=== PATIENT | female | born 1945 | race Caucasian/White ===

== ENCOUNTER → 2017-08-03 | Outpatient (CLI) | payer OTHER ==
[~2017-08-03] MED LIST: ALBUTEROL; ALBUTEROL2.5 MG/31 INH; AMARYL2 MG PO; AMLODIPINE BESYL5 M1 PO; ASPIRIN EC325 M1 PO; ASPRIMOX 325 M325 MG PO; AUGMENTIN 875875 M1 PO; AVELOX 400 MG400 M1 PO; CARVEDILOL25 MG PO; CLONIDINE0.1; COREG CR40 MG PO; DULERA 200 MCG/13 GM IH; GLUCOPHAGE1000 MG PO; GLYBURIDE 5 MG T5 M1 PO; HYDROCHLOROTH12.5 M1 PO; HYDROCHLOROTH12.5 MG PO; IMDUR 60 MG TAB60 M1 PO; LEVAQUIN 500 M500 M2 PO; LEVOTHYROXINE0.05 MG PO; LIPITOR 40 MG T40 M1 PO; LISINOPRIL-HCT1 EAC1 PO; MAGOX 400400 MG PO; METFORMIN HCL500 MG PO; NEXIUM40 MG PO; NORVASC 5 MG TAB5 MG PO; POTASSIUM GLUC500 GM PO; PREDNISONE 10 M10 M1 PO; PRILOSEC 20 MG20 MG PO; VENTOLIN HFA 1818 GM INH; VITAMIN D3 1,01 EACH PO; ZESTRIL40 MG PO; ZINC30 MG PO; ZPAK PO
== END ==
LOC: M.RAD 10:55
DX: J44.9 Chronic obstructive pulmonary disease, unspecified (principal); J98.11 Atelectasis; Z95.0 Presence of cardiac pacemaker

== ENCOUNTER 2017-11-20 23:17 | Inpatient (IN) | payer OTHER ==
[~2017-11-20] VITALS: Ht 167.6 cm; Wt 78.5 kg
[~2017-11-20 23:17] MED LIST changes: -ALBUTEROL2.5 MG/31 INH; -AMLODIPINE BESYL5 M1 PO; -CLONIDINE0.1
[2017-11-20 23:30] VITALS: BP 183/86
[2017-11-20 23:38] LABS: ABSOLUTE BASOPHILS 0.1 thou/uL (0.0-0.2); ABSOLUTE EOSINOPHILS 0.7 thou/uL (0.0-0.7); ABSOLUTE MONOCYTES 0.8 thou/uL (0.0-1.2); ABSOLUTE NEUTROPHILS 4.8 thou/uL (1.6-8.1); BASOPHILS 0.6 %; HEMATOCRIT 34.2 % (37.0-47.0); HEMOGLOBIN 11.5 gm/dL (12.0-15.0); LYMPHOCYTES 32.5 %; MCH 29.1 pg (26.0-34.0); MCHC 33.7 g/dL (28.0-37.0); MCV 86.5 fL (80.0-100.0); MONOCYTES 8.8 %; MPV 7.4 fl. (7.2-11.1); NUCLEATED RBCS 0 /100WBC; PLATELET COUNT* 341 thou/uL (150-400); POLYS 51.1 %; RBC 3.95 mil/uL (4.20-5.00); RDW-CV 14.6 % (10.5-14.5); WBC 9.3 thou/uL (4.0-11.0)
[2017-11-20 23:55] LABS: CALCIUM 9.4 mg/dL (8.5-10.1); CREATININE 1.6 mg/dL (0.6-1.3); POTASSIUM 3.9 mmol/L (3.5-5.1)
[2017-11-20 23:59] LABS: INR 1.1; PROTIME 10.5 Seconds (9.20-11.50)
[2017-11-21 00:08] LABS: ALBUMIN 3.8 g/dL (3.4-5.0); TOTAL BILIRUBIN 0.4 mg/dL (<0.1-1.0); TOTAL PROTEIN 7.5 g/dL (6.4-8.2); TROPONIN-I LEVEL 0.09 ng/mL (<0.06)
[2017-11-21] MEDS ORDERED: CLONIDINE0.1 (00:15)
[2017-11-21 01:58] LABS: URINE BILIRUBIN NEGATIVE (Negative); URINE BLOOD NEGATIVE (Negative); URINE CLARITY CLEAR; URINE COLOR STRAW; URINE GLUCOSE-RANDOM NEGATIVE (Negative); URINE KETONES NEGATIVE (Negative); URINE LEUKOCYTES-REFLEX NEGATIVE (Negative); URINE NITRITE-REFLEX NEGATIVE (Negative); URINE PROTEIN NEGATIVE (Negative); URINE SPECIFIC GRAVITY <= 1.005 (1.005-1.030); URINE UROBILINOGEN 0.2 E.U./dl (0.2-1.0)
[2017-11-21 02:52] VITALS: BP 150/57
[2017-11-21 03:10] VITALS: BP 125/49
[2017-11-21] MEDS ORDERED: ALBUTEROL2.5 MG/31 INH (03:21)
--- NOTE | 2017-11-21 06:58 | NUR ---
PT WAS ADMITTED TO ROOM 200 DURING THIS SHIFT; VSS, A+OX4, DENIES PAIN. SHE IS ABLE TO COMMUNICATE HER NEEDS TO STAFF EFFECTIVELY. SHE HAS DENIED THE NEED FOR PAIN MEDICATION UP TO THIS TIME. NPO SINCE ARRIVAL FOR A CARDIOLOGY CONSULT LATER TODAY. ECHO ORDERED. HOME MEDICATIONS REVIEWED WITH PATIENT AT TIME OF ADMISSION.
[2017-11-21 07:59] LABS: HEMATOCRIT 32.3 % (37.0-47.0); HEMOGLOBIN 10.9 gm/dL (12.0-15.0); MCH 29.1 pg (26.0-34.0); MCHC 33.8 g/dL (28.0-37.0); MCV 86.1 fL (80.0-100.0); MPV 7.9 fl. (7.2-11.1); RBC 3.75 mil/uL (4.20-5.00); RDW-CV 14.6 % (10.5-14.5); WBC 9.3 thou/uL (4.0-11.0)
[2017-11-21 08:00] VITALS: BP 157/59
[2017-11-21 08:14] LABS: ALBUMIN 3.6 g/dL (3.4-5.0); CALCIUM 9.1 mg/dL (8.5-10.1); CREATININE 1.3 mg/dL (0.6-1.3); POTASSIUM 3.9 mmol/L (3.5-5.1); TOTAL BILIRUBIN 0.4 mg/dL (<0.1-1.0)
[2017-11-21 12:20] VITALS: BP 141/68
--- NOTE | 2017-11-21 16:57 | EKG ---
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 Tomlinson : 1945 Requested By: Tanya Suresh Order Number: [id number] MD: Bobby Acharya Measurements Intervals [place] Rate: 68 P: 15 DE: 53 QRS: 125 QRSD: 128 T: -63 QT: 386 QTc: 411 Interpretive Statements A-V dual-paced rhythm with some inhibition No further analysis attempted due to paced rhythm Compared to ECG 07/07/2016 10:33:18 Atrial-sensed ventricular-paced complex(es) or rhythm no longer present Electronically Signed On 11-21-2017 16:56:49 CDT by Bobby Acharya [email or web address] <ELECTRONICALLY SIGNED> By: Bobby Acharya MD, FACC 11/21/17 1656 2344 2344 Bobby Acharya MD, FAC /EPI
[2017-11-21 16:58] VITALS: BP 153/68
--- NOTE | 2017-11-21 18:56 | NUR ---
I ASSUMED CARE OF THE PATIENT AT 0700. SHE IS ALERT AND ORIENTED X4 AND IS UP AD MANUEL SAFELY. HOURLY ROUNDING WAS COMPLETED AND PATIENT NEEDS ARE MET. BED IS IN THE LOW LOCKED POSITION AND CALL LIGHT IS IN REACH. RENAL DOPPLER WAS COMPLETED AND ECHO IS SCHEDULED FOR WEDNESDAY. CONTINUOUS FLUIDS ARE GOING. SHE IS V PACED ON THE MONITOR. BLOOD SUGARS ARE MANAGED WITH ORAL COVERAGE. PATIENT IS PROGRESSING TOWARDS GOALS. PAIN IS DENIED. WILL CONTINUE TO MONITOR.
[2017-11-21 19:35] VITALS: BP 155/72
[2017-11-22] VITALS: BP 153/79
[2017-11-22 04:00] VITALS: BP 131/54
--- NOTE | 2017-11-22 04:09 | NUR ---
END SHIFT: PT RESTED WELL. NO COMPLAINTS. NO PAIN. V PACED WITH PVC'S. REMAINS ON RA. AWAITING DC TODAY. ASSESSMENT UNCHANGED. VSS. SAFETY PRECAUTIONS IN PLACE. CALL LIGHT IN REACH. PERFORMED HOURLY ROUNDING. WILL CONT TO MONITOR.
[2017-11-22 05:12] LABS: HEMATOCRIT 31.1 % (37.0-47.0); HEMOGLOBIN 10.4 gm/dL (12.0-15.0); MCH 28.8 pg (26.0-34.0); MCHC 33.6 g/dL (28.0-37.0); MCV 85.9 fL (80.0-100.0); MPV 7.9 fl. (7.2-11.1); RBC 3.62 mil/uL (4.20-5.00); RDW-CV 14.8 % (10.5-14.5); WBC 7.6 thou/uL (4.0-11.0)
[2017-11-22 05:45] LABS: CALCIUM 9.1 mg/dL (8.5-10.1); CREATININE 1.3 mg/dL (0.6-1.3); POTASSIUM 4.1 mmol/L (3.5-5.1)
--- NOTE | 2017-11-22 07:15 | NUR ---
ASSUMED CARE OF PT ASSESSED AND DOCUMENTED. PT IS ON CARDIAC MONITER TRACING V-PACED HR 73. PT IS A&O WITH NO C/O PAIN. PT IS AFEBRILE. PT IS ON ROOM AIR. BED IS IN LOW POSITION CALL LIGHT IS IN REACH. WM.
[2017-11-22 08:00] VITALS: BP 189/78
--- NOTE | 2017-11-22 09:24 | CON ---
[facility] [address] [place] [address] CONSULTATION Name: KIERSTEN ROMERO Room: [address] IN ..#: [id number] Admission: 11/21/17 Attend Phys: Daniel Burnett, Discharge: Date of : 45 Report #: [id number] THIS REPORT FOR: //name// CC: Liborio Looney DO Daniel Burnett TYPE OF REPORT: Cardiology consultation. INDICATION: Elevated troponin. HISTORY OF PRESENT ILLNESS: The patient is a very pleasant 71-year-old white female who was admitted to the hospital with hypertensive urgency. In this setting, she was noted to have a creatinine of 1.6 and troponins of 0.08, 0.09 and 0.08. She denies chest pain. She has a history of nonischemic cardiomyopathy with normalization of her left ventricular systolic function on most recent echocardiogram. 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 From a cardiac standpoint, she is doing well. Cardiac risk factors include hypertension, hyperlipidemia and type 2 diabetes mellitus. She denies any chest pain, tightness or pressure. She is not having palpitations. She was having headaches and in that setting was checking her blood pressure and noting it to be rather elevated. She has no visual changes. She is without other cardiac complaint. PAST MEDICAL HISTORY: 1. Nonischemic cardiomyopathy. 2. Status post biventricular ICD placement. 3. Hypertension. 4. Cardiac catheterization that shows mild nonocclusive coronary artery disease. 5. Hyperlipidemia. SOCIAL HISTORY: She does not smoke. She does not drink alcohol. FAMILY HISTORY: Noncontributory. PHYSICAL EXAMINATION: VITAL SIGNS: Presently stable. Blood pressure 150/77 and pulse 69 and regular. GENERAL: This is a pleasant lady, in no distress. Mood and affect appropriate. HEENT: Extraocular muscles intact. Mucous membranes moist. NECK: Shows no jugular venous distention. There are no carotid bruits. CHEST: Chest reveals clear lung owens without wheezes, rales or rhonchi. CARDIOVASCULAR: Reveals a regular rhythm without gallop or murmur. ABDOMEN: Reveals normal bowel sounds. The abdomen is soft and nontender. EXTREMITIES: No clubbing, [place] [address] CONSULTATION Name: KIERSTEN ROMERO Room: [address] IN [facility].#: [id number] Admission: 11/21/17 Attend Phys: Daniel Burnett, Discharge: Date of : 45 Report #: [id number] SKIN: Warm and dry. RADIOLOGICAL DATA: A 12-lead EKG shows ventricular pacing. LABORATORY DATA: Troponins are as outlined above. IMPRESSION AND RECOMMENDATIONS: 1. Minimally elevated troponins, likely due to hypertension. No need for further cardiac workup at this time. 2. Hypertension, improved. We will resume amlodipine 5 mg daily in addition to her current home regimen. 3. Hyperlipidemia. Continue current statin agent. 4. Coronary artery disease, presently stable. She is not having symptoms to suggest angina or acute coronary syndrome. 5. Status post biventricular implantable cardioverter-defibrillator placement for cardiac resynchronization therapy and primary prevention. Continue follow up with Cardiology office as outpatient. 6. Acute renal insufficiency, improving. At this point in time, the patient appears stable from cardiac standpoint. I believe she could be safely discharged and follow up as outpatient. <ELECTRONICALLY SIGNED> By: Bobby Acharya MD, FACC 11/22/17 0924 1423 [id number] Acharya MD, FACC /nt
[2017-11-22 11:35] VITALS: BP 170/69
[2017-11-22] MEDS ORDERED: ZESTRIL40 MG PO (11:48)
[2017-11-22] MEDS ORDERED: AMLODIPINE BESYL5 M1 PO (11:48)
--- NOTE | 2017-11-22 14:19 | 2DMMODE ---
[place] [address] 2 D/M-MODE ECHOCARDIOGRAM Name: KIERSTEN ROMERO Room: [address] IN [facility]#: [id number] Admission: 11/21/17 Attend Phys: Dainel Brand Discharge: Date of : 45 Date of Service: 11/22/17 1418 Report #: [id number] THIS REPORT FOR: //name// APPROVED REPORT Study performed: 11/22/2017 10:41:59 EXAM: Comprehensive 2D, Doppler, and color-flow Echocardiogram Patient Location: In-Patient Room #: 200 Status: routine BSA: 1.88 HR: 64 bpm BP: 189/78 mmHg Rhythm: NSR Other Information Study Quality: Good Indications Elevated Troponin Hypertension/HDD 2D Dimensions LVEF(%): 60.81 (>50%) IVSd: 21.57 (7-11mm) LVOT Diam: 20.47 (18-24mm) LVDd: 48.05 mm PWd: 19.75 (7-11mm) Ascending Ao: 30.50 (22-36mm) LVDs: 32.41 (25-40mm) Aortic Root: 32.55 mm Onofre's LVEF: 60.81 % Volumes Left Atrial Volume (Systole) LA ESV Index: 43.90 mL/m2 Aortic Valve AoV Peak Alex.: 1.27 m/s AO Peak Gr.: 6.46 mmHg LVOT Max P.74 mmHg AO Mean Gr.: 3.39 mmHg LVOT Mean P.64 mmHg LVOT Max V: 1.20 m/s AO V2 VTI: 29.02 cm LVOT Mean V: 0.74 m/s MUSHTAQ (VTI): 2.89 cm2 LVOT V1 VTI: 25.45 [place] [address] 2 D/M-MODE ECHOCARDIOGRAM Name: KIERSTEN ROMERO Room: [address] IN ..#: [id number] Admission: 11/21/17 Attend Phys: Daniel Brand Discharge: Date of : 45 Date of Service: 11/22/17 1418 Report #: [id number] E/A Ratio: 1.06 MV Decel. Time: 225.84 ms MV E Max Alex.: 0.79 m/s MV PHT: 65.49 ms MVA (PHT): 3.36 cm2 TDI E/Lateral E': 9.88 E/Medial E': 11.29 Medial E' Alex.: 0.07 m/s Lateral E' Alex.: 0.08 m/s Pulmonary Valve PV Peak Alex.: 0.92 m/s PV Peak Gr.: 3.41 mmHg Tricuspid Valve TR Peak Gr.: 28.16 mmHg RVSP: 33.00 mmHg Left Ventricle The left ventricle is normal size. There is normal LV segmental wall motion. Mild concentric left ventricular hypertrophy. Left ventricular systolic function is normal. The left ventricular ejection fraction is within the normal range. LVEF is 55-60%. Grade I - abnormal relaxation pattern. Right Ventricle The right ventricle is normal size. The right ventricular systolic function is normal. Pacemaker lead is present in the right ventricle. Atria Left atrium is moderately dilated. The right atrium size is normal. Aortic Valve Mild aortic valve sclerosis. No aortic regurgitation is present. There is no aortic valvular stenosis. Mitral Valve The mitral valve is normal in structure. Mild mitral regurgitation. No evidence of mitral valve stenosis. Tricuspid Valve The tricuspid valve is normal in structure. Mild tricuspid regurgitation. The RVSP is 30-35 mmHg. Pulmonic Valve The pulmonary valve is normal in structure. [place] [address] 2 D/M-MODE ECHOCARDIOGRAM Name: KIERSTEN ROMERO Room: [address] IN [facility]#: [id number] Admission: 11/21/17 Attend Phys: Daniel Brand Discharge: Date of : 45 Date of Service: 11/22/17 1418 Report #: [id number] valvular regurgitation. Great Vessels The aortic root is normal in size. IVC is normal in size and collapses with >50% inspiration Pericardium There is no pericardial effusion. <Conclusion> The left ventricle is normal size. Mild concentric left ventricular hypertrophy. Left ventricular systolic function is normal. The left ventricular ejection fraction is within the normal range. LVEF is 55-60%. Grade I - abnormal relaxation pattern. Left atrium is moderately dilated. The right atrium size is normal. Mild aortic valve sclerosis. No aortic regurgitation is present. There is no aortic valvular stenosis. The mitral valve is normal in structure. Mild mitral regurgitation. The tricuspid valve is normal in structure. Mild tricuspid regurgitation. The RVSP is 30-35 mmHg. IVC is normal in size and collapses with >50% inspiration There is no pericardial effusion. There is normal LV segmental wall motion. Pacemaker lead is present in the right ventricle. <ELECTRONICALLY SIGNED> By: Rickey Matos MD, FACC 11/22/17 1418 1418 1418 Rickey Matos MD, FACC /INF
[2017-11-22 15:23] VITALS: BP 179/77
[2017-11-22 16:25] VITALS: BP 179/77
--- NOTE | 2017-11-22 17:39 | NUR ---
PT D/C'D TO HOME. ALL CONSULTS OK WITH D/C. D/C'D IV AND CARDIAC MONITER. EDUCATION GIVEN RE FOLLOW=UPS, MEDICATIONS, AND DRS ORDERS. ALL BELONGINGS PACKED UP AND LEFT WITH PT ACCOMPANIED BY STAFF AND PT'S .
== END 2017-11-22 17:32 | disposition home or self-care (01) | DRG 683 ==
LOC: M.ERS 23:17 → M.2W 11-21 01:47 → M.TBA-ER 11-21 01:47 → M.2W 11-21 02:16
PROVIDERS: Emergency Medicine; Internal Medicine; ADMIT Family Medicine
DX: N17.9 Acute kidney failure, unspecified (principal); I16.1 Hypertensive emergency; I42.9 Cardiomyopathy, unspecified; I16.0 Hypertensive urgency; I25.10 Atherosclerotic heart disease of native coronary artery without angina pectoris; I12.9 Hypertensive chronic kidney disease with stage 1 through stage 4 chronic kidney disease, or unspecified chronic kidney disease; N18.3 Chronic kidney disease, stage 3 (moderate); E11.22 Type 2 diabetes mellitus with diabetic chronic kidney disease; E78.5 Hyperlipidemia, unspecified; E78.00 Pure hypercholesterolemia, unspecified; J44.9 Chronic obstructive pulmonary disease, unspecified; I50.9 Heart failure, unspecified; Z95.0 Presence of cardiac pacemaker; Z88.2 Allergy status to sulfonamides; Z88.8 Allergy status to other drugs, medicaments and biological substances; Z79.899 Other long term (current) drug therapy

== ENCOUNTER → 2018-03-23 | Outpatient (CLI) | payer OTHER ==
[~2018-03-23] MED LIST changes: +ALBUTEROL2.5 MG/31 INH; +AMLODIPINE BESYL5 M1 PO; +CLONIDINE0.1
== END ==
LOC: M.CT 11:11
DX: G20 Parkinson's disease (principal); I11.0 Hypertensive heart disease with heart failure; I50.9 Heart failure, unspecified; E11.9 Type 2 diabetes mellitus without complications; J44.9 Chronic obstructive pulmonary disease, unspecified; E78.00 Pure hypercholesterolemia, unspecified; Z95.810 Presence of automatic (implantable) cardiac defibrillator

== ENCOUNTER → 2018-04-12 | Outpatient (CLI) | payer OTHER ==
[2018-04-12 12:10] LABS: ALBUMIN 3.8 g/dL (3.4-5.0); CALCIUM 9.2 mg/dL (8.5-10.1); CREATININE 1.3 mg/dL (0.6-1.3); POTASSIUM 4.4 mmol/L (3.5-5.1); TOTAL BILIRUBIN 0.4 mg/dL (<0.1-1.0); TOTAL PROTEIN 7.6 g/dL (6.4-8.2)
== END ==
LOC: M.LAB 11:21
PROVIDERS: Psychiatry & Neurology Neuromuscular Medicine
DX: G20 Parkinson's disease (principal); K59.00 Constipation, unspecified; R26.9 Unspecified abnormalities of gait and mobility; I11.0 Hypertensive heart disease with heart failure; I50.9 Heart failure, unspecified; J44.9 Chronic obstructive pulmonary disease, unspecified; E11.9 Type 2 diabetes mellitus without complications; E78.00 Pure hypercholesterolemia, unspecified; Z95.810 Presence of automatic (implantable) cardiac defibrillator

== ENCOUNTER → 2020-07-12 | Outpatient (CLI) | payer MEDICARE | LOC: M.ULTRA 08:32 | DX: N26.1 Atrophy of kidney (terminal) (principal); R34 Anuria and oliguria; G20 Parkinson's disease; E03.9 Hypothyroidism, unspecified; E11.9 Type 2 diabetes mellitus without complications; J44.9 Chronic obstructive pulmonary disease, unspecified; I42.8 Other cardiomyopathies; I11.0 Hypertensive heart disease with heart failure; I50.22 Chronic systolic (congestive) heart failure; I25.10 Atherosclerotic heart disease of native coronary artery without angina pectoris; E78.2 Mixed hyperlipidemia; E53.8 Deficiency of other specified B group vitamins; Z95.810 Presence of automatic (implantable) cardiac defibrillator ==

== ENCOUNTER → 2021-05-23 | Outpatient (CLI) | payer OTHER | LOC: M.CT 10:29 | DX: S22.038A Other fracture of third thoracic vertebra, initial encounter for closed fracture (principal); M47.814 Spondylosis without myelopathy or radiculopathy, thoracic region; M85.88 Other specified disorders of bone density and structure, other site; M43.8X4 Other specified deforming dorsopathies, thoracic region; X58.XXXA Exposure to other specified factors, initial encounter; Y93.89 Activity, other specified; Y92.89 Other specified places as the place of occurrence of the external cause; Y99.8 Other external cause status ==